=== PATIENT | male | born 2000 | race Caucasian/White ===

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

== ENCOUNTER 2019-09-10 10:25 | Emergency (ER) | payer SELFPAY ==
--- NOTE | 2019-09-10 10:55 | RAD ---
Left ankle: 3 VIEWS INDICATION:Injury and pain COMPARISON:None FINDINGS: Soft tissue swelling laterally No evidence of fracture. No osseous abnormality identified. IMPRESSION: No evidence of fracture
== END 2019-09-10 11:10 | disposition home or self-care (01) ==
LOC: BURERS 10:25
DX: S93.402A Sprain of unspecified ligament of left ankle, initial encounter (principal); F17.210 Nicotine dependence, cigarettes, uncomplicated; X50.1XXA Overexertion from prolonged static or awkward postures, initial encounter

== ENCOUNTER 2020-08-30 12:47 | Emergency (ER) | payer SELFPAY | END 2020-08-30 13:24 | disposition home or self-care (01) | LOC: BURERS 12:47 | DX: K64.8 Other hemorrhoids (principal); F17.210 Nicotine dependence, cigarettes, uncomplicated | CPT/HCPCS: 82274; 99283 ==

== ENCOUNTER 2021-03-23 14:08 | Emergency (ER) | payer OTHER, SELFPAY | END 2021-03-23 15:16 | disposition home or self-care (01) | LOC: BURERS 14:08 | DX: H60.501 Unspecified acute noninfective otitis externa, right ear (principal); F17.210 Nicotine dependence, cigarettes, uncomplicated | CPT/HCPCS: 99282 ==

== ENCOUNTER 2021-04-03 17:25 | Emergency (ER) | payer SELFPAY | END 2021-04-03 18:02 | disposition home or self-care (01) | LOC: BURERS 17:25 | DX: S62.336A Displaced fracture of neck of fifth metacarpal bone, right hand, initial encounter for closed fracture (principal); F17.210 Nicotine dependence, cigarettes, uncomplicated; W22.8XXA Striking against or struck by other objects, initial encounter ==